=== PATIENT | male | born 1980 | race Two or more races ===

== ENCOUNTER 2017-02-25 14:36 | Emergency (ER) | payer OTHER ==
--- NOTE | 2017-02-25 14:53 | EDM.PDOC ---
ED HPI GENERAL MEDICAL PROBLEM - General Stated Complaint: FLU-LIKE SYMPTOMS Time Seen by Provider: 02/25/17 14:42 Source of Information: Reports: Patient History Limitations: Reports: No Limitations - History of Present Illness INITIAL COMMENTS - FREE TEXT/NARRATIVE: HISTORY AND PHYSICAL: History of present illness: Patient is a 36-year-old male who presents in the [facility] . He states that yesterday he started having a cough and developed head, neck , back pain late last night into today. Initially presented to the [facility] for evaluation, upon further discussion the patient mentioned he has had meningitis in the past and they would like him to be evaluated in the ED. Patient denies any change in vision, chest pain, shortness of breath, abdominal pain, vomiting or diarrhea. Patient does report mild nausea. Reports that the [facility] did an influenza swab on him, which was negative. Denies any recent injury or trauma. Patient was hospitalized 2 years ago with meningitis. He is concerned that he may have menegitis again, due to the neck pain. Review of systems: As per history of present illness and below otherwise all systems reviewed and negative. Past medical history: As per history of present illness and as reviewed below otherwise noncontributory. Surgical history: As per history of present illness and as reviewed below otherwise noncontributory. Social history: No reported history of drug or alcohol abuse. Family history: As per history of present illness and as reviewed below otherwise noncontributory. Physical exam: General: Well-developed and well-nourished 36-year-old male. Alert and oriented. Nontoxic appearing. HEENT: Atraumatic, normocephalic, pupils reactive, negative for conjunctival pallor or scleral icterus, mucous membranes moist, throat clear, neck supple, nontender, trachea midline. TM normal bilaterally. Patient has full range of motion of the cervical spine/neck, does have some discomfort but no nuchal rigidity. Lungs: Clear to auscultation, breath sounds equal bilaterally, chest nontender. Heart: S1S2, regular rate and rhythm, no overt murmurs Abdomen: Soft, nondistended, nontender. Negative for masses or hepatosplenomegaly. Negative for costovertebral tenderness. Pelvis: Stable nontender. Genitourinary: Deferred. Rectal: Deferred. C-Spine/Back: No pinpoint vertebral tenderness. No obvious deformities, crepitus or step-offs. Extremities: Atraumatic, negative for cords or calf pain. Neurovascular unremarkable. Neuro: Awake, alert, oriented. Cranial nerves II through XII unremarkable. Cerebellum unremarkable. Motor and sensory unremarkable throughout. Exam nonfocal. Along with routine labs a lumbar puncture will be done by the radiologist, Dr. Briggs. CBC, CMP, chest x-ray are normal. Waiting for CSF studies to return. Patient received Toradol for body aches and Tylenol for fever management. The CSF studies were within normal limits. Did discuss with patient the treatment of influenza. We'll prescribe Tamiflu and Ultram as he does have severe body aches. We talked about supportive care measures such as hydration and Tylenol/ibuprofen. Work note was given until the patient is fever free for 24 hours. Patient voices understanding and is agreeable to plan of care. He denies any further questions at this time. Diagnostics: CBC, CMP, chest x-ray, CSF study, influenza screen Therapeutics: IV fluid, Zofran, Toradol, Tylenol Impression: Influenza B Plan: 1. Tamiflu 1 tab twice daily 5 days. (First 2 doses have been given to use through the ER). This medication does not treat the flu but will shorten the duration of symptoms. Please continue to provide symptomatic care such as: Tylenol and/or ibuprofen for pain and fever management, encourage plenty of fluids to prevent dehydration, and rest. 2. Tramadol has been prescribed to use for severe body aches. This medication does cause drowsiness so do not take it while driving or needing to be functioning at work. Take 1 tab every 4-6 hours as needed. 3. As we discussed please perform good hand hygiene and contact precaution as this is contagious. 4. Follow-up with your primary caregiver in the next 1-2 days. Return to the ED as needed and as discussed. Definitive disposition and diagnosis as appropriate pending reevaluation and review of above. Duration: Day(s): Location: Reports: Head, Neck, Back Quality: Reports: Ache Associated Symptoms: Reports: Cough, Headaches, Nausea/Vomiting. Denies: Confusion, Chest Pain, cough w sputum, Diaphoresis, Fever/Chills, Loss of Appetite, Malaise, Rash, Seizure, Shortness of Breath, Syncope, Weakness Back Pain Score (Numeric/FACES): 9 - Related Data Allergies Allergy/AdvReac Type Severity Reaction Status Date / Time No Known Drug Allergies Allergy Other Verified 02/25/17 14:50 Home Meds: Home Meds . [No Known Home Meds] 02/25/17 [History] ED ROS GENERAL - Review of Systems Review Of Systems: ROS reveals no pertinent complaints other than HPI. ED EXAM, GENERAL - Physical Exam Exam: See Below (See dictation) Course - Vital Signs Last Recorded V/S: Last Vital Signs Temp 99.0 F 02/25/17 14:51 Pulse 79 02/25/17 14:51 Resp 18 02/25/17 14:51 BP 136/75 02/25/17 14:51 Pulse Ox 98 02/25/17 14:51 - Orders/Labs/Meds Orders: Active Orders 24 hr Category Date Time Status Fluoro GD Lumbar Punct Dx [CR] Stat Exams 02/25/17 15:18 Taken CULTURE CSF + SMEAR [RM] Stat Lab 02/25/17 15:15 Received Sodium Chloride 0.9% [Normal Saline] 1,000 ml Med 02/25/17 16:36 Active IV STAT Medication Orders Sodium Chloride (Normal Saline) 1,000 mls @ 150 mls/hr IV STAT ONE Stop: 02/25/17 23:15 Last Admin: 02/25/17 16:40 Dose: 150 mls/hr Labs: Laboratory Tests 02/25/17 02/25/17 02/25/17 Range/Units 15:15 15:15 15:50 WBC (4.0-11.0) K/uL RBC (4.50-5.90) M/uL Hgb (13.0-17.0) g/dL Hct (38.0-50.0) % MCV (80.0-98.0) fL MCH (27.0-32.0) pg MCHC (31.0-37.0) g/dL RDW Std Deviation (28.0-62.0) fl RDW Coeff of Marilyn (11.0-15.0) % Plt Count (150-400) K/uL MPV (7.40-12.00) fL Neut % (Auto) (48.0-80.0) % Lymph % (Auto) (16.0-40.0) % Evangeline % (Auto) (0.0-15.0) % Eos % (Auto) (0.0-7.0) % Baso % (Auto) (0.0-1.5) % Neut # (Auto) (1.4-5.7) K/uL Lymph # (Auto) (0.6-2.4) K/uL Evangeline # (Auto) (0.0-0.8) K/uL Eos # (Auto) (0.0-0.7) K/uL Baso # (Auto) (0.0-0.1) K/uL Nucleated RBC % /100WBC Nucleated RBCs # K/uL Sodium (136-146) mmol/L Potassium (3.5-5.1) mmol/L Chloride (98-110) mmol/L Carbon Dioxide (21-31) mmol/L BUN (6.0-23.0) mg/dL Creatinine (0.6-1.5) mg/dL Est Cr Clr Drug Dosing mL/min Estimated GFR (MDRD) ml/min Glucose (60-110) mg/dL Calcium (8.8-10.8) mg/dL Total Bilirubin (0.1-1.5) mg/dL AST (5-40) IU/L ALT (8-54) IU/L Alkaline Phosphatase (40-150) Total Protein (6.0-8.0) g/dL Albumin (3.5-5.0) g/dL Globulin (2.0-3.5) g/dL Albumin/Globulin Ratio (1.3-2.8) CSF Appearance CLEAR CSF Color COLORLESS CSF WBC 0.001 (0-0.005) K/uL CSF RBC 0.000 (0.0-0.0) M/uL CSF Mononuclear Cells 100.0 % CSF Polymorphonuclear 0.0 % CSF Glucose 53.0 (50-80) mg/dL CSF Total Protein 28 (15-60) mg/dL 02/25/17 02/25/17 Range/Units 16:21 16:21 WBC 5.72 (4.0-11.0) K/uL RBC 4.63 (4.50-5.90) M/uL Hgb 14.8 (13.0-17.0) g/dL Hct 42.7 (38.0-50.0) % MCV 92.2 (80.0-98.0) fL MCH 32.0 (27.0-32.0) pg MCHC 34.7 (31.0-37.0) g/dL RDW Std Deviation 44.8 (28.0-62.0) fl RDW Coeff of Marilyn 13 (11.0-15.0) % Plt Count 197 (150-400) K/uL MPV 11.30 (7.40-12.00) fL Neut % (Auto) 68.4 (48.0-80.0) % Lymph % (Auto) 18.2 (16.0-40.0) % Evangeline % (Auto) 9.4 (0.0-15.0) % Eos % (Auto) 3.5 (0.0-7.0) % Baso % (Auto) 0.5 (0.0-1.5) % Neut # (Auto) 3.9 (1.4-5.7) K/uL Lymph # (Auto) 1.0 (0.6-2.4) K/uL Evangeline # (Auto) 0.5 (0.0-0.8) K/uL Eos # (Auto) 0.2 (0.0-0.7) K/uL Baso # (Auto) 0.0 (0.0-0.1) K/uL Nucleated RBC % 0.0 /100WBC Nucleated RBCs # 0 K/uL Sodium 139 (136-146) mmol/L Potassium 4.2 (3.5-5.1) mmol/L Chloride 109 (98-110) mmol/L Carbon Dioxide 20 L (21-31) mmol/L BUN 11 (6.0-23.0) mg/dL Creatinine 0.8 (0.6-1.5) mg/dL Est Cr Clr Drug Dosing 130.11 mL/min Estimated GFR (MDRD) > 60.0 ml/min Glucose 79 (60-110) mg/dL Calcium 8.8 (8.8-10.8) mg/dL Total Bilirubin 0.3 (0.1-1.5) mg/dL AST 24 (5-40) IU/L ALT 25 (8-54) IU/L Alkaline Phosphatase 43 (40-150) Total Protein 7.3 (6.0-8.0) g/dL Albumin 4.1 (3.5-5.0) g/dL Globulin 3.2 (2.0-3.5) g/dL Albumin/Globulin Ratio 1.3 (1.3-2.8) CSF Appearance CSF Color CSF WBC (0-0.005) K/uL CSF RBC (0.0-0.0) M/uL CSF Mononuclear Cells % CSF Polymorphonuclear % CSF Glucose (50-80) mg/dL CSF Total Protein (15-60) mg/dL Meds: Medications Generic Name Dose Route Start Last Admin Trade Name Freq PRN Reason Stop Dose Admin Sodium Chloride 1,000 mls @ 150 mls/hr 02/25/17 16:36 02/25/17 16:40 Normal Saline IV 02/25/17 23:15 150 mls/hr STAT ONE Administration Discontinued Medications Generic Name Dose Route Start Last Admin Trade Name Freq PRN Reason Stop Dose Admin Acetaminophen 1,000 mg 02/25/17 16:42 02/25/17 16:54 Tylenol Extra Strength PO 02/25/17 16:43 1,000 mg ONETIME ONE Administration Sodium Chloride 1,000 mls @ 999 mls/hr 02/25/17 14:58 02/25/17 15:27 Normal Saline IV 02/25/17 15:58 999 mls/hr STAT ONE Administration Ketorolac Tromethamine 30 mg 02/25/17 16:30 02/25/17 16:39 Toradol IVPUSH 02/25/17 16:31 30 mg ONETIME ONE Administration Ondansetron HCl 4 mg 02/25/17 14:58 02/25/17 15:27 Zofran IVPUSH 02/25/17 14:59 4 mg ONETIME ONE Administration Oseltamivir Phosphate 75 mg 02/25/17 16:42 02/25/17 16:54 Tamiflu PO 02/25/17 16:43 75 mg ONETIME ONE Administration Oseltamivir Phosphate 75 mg 02/25/17 18:20 Tamiflu PO 02/25/17 18:21 ONETIME ONE Departure - Departure Time of Disposition: 18:26 Disposition: Home, Self-Care 01 Clinical Impression: Influenza B - Discharge Information Referrals: PCP,None [Primary Care Provider] - Additional Instructions: My general discharge The following information is given to patients seen in the emergency department who are being discharged to home. This information is to outline your options for follow-up care. We provide all patients seen in our emergency department with a follow-up referral. The need for follow-up, as well as the timing and circumstances, are variable depending upon the specifics of your emergency department visit. If you don't have a primary care physician on staff, we will provide you with a referral. We always advise you to contact your personal physician following an emergency department visit to inform them of the circumstance of the visit and for follow-up with them and/or the need for any referrals to a consulting specialist. The emergency department will also refer you to a specialist when appropriate. This referral assures that you have the opportunity for follow-up care with a specialist. All of these measure are taken in an effort to provide you with optimal care, which includes your follow-up. Under all circumstances we always encourage you to contact your private physician who remains a resource for coordinating your care. When calling for follow-up care, please make the office aware that this follow-up is from your recent emergency room visit. If for any reason you are refused follow-up, please contact the [facility] Emergency Department at and asked to speak to the emergency department charge nurse. [facility] [address] [place] [address] 1. Tamiflu 1 tab twice daily 5 days. (First 2 doses have been given to use through the ER). This medication does not treat the flu but will shorten the duration of symptoms. Please continue to provide symptomatic care such as: Tylenol and/or ibuprofen for pain and fever management, encourage plenty of fluids to prevent dehydration, and rest. 2. Tramadol has been prescribed to use for severe body aches. This medication does cause drowsiness so do not take it while driving or needing to be functioning at work. Take 1 tab every 4-6 hours as needed. 3. As we discussed please perform good hand hygiene and contact precaution as this is contagious. 4. Follow-up with your primary caregiver in the next 1-2 days. Return to the ED as needed and as discussed. - My Orders Last 24 Hours: My Active Orders 02/25/17 15:15 CULTURE CSF + SMEAR [RM] Stat 02/25/17 16:36 Sodium Chloride 0.9% [Normal Saline] 1,000 ml IV STAT - Assessment/Plan Last 24 Hours: My Active Orders 02/25/17 15:15 CULTURE CSF + SMEAR [RM] Stat 02/25/17 16:36 Sodium Chloride 0.9% [Normal Saline] 1,000 ml IV STAT
[2017-02-25] MEDS ORDERED: Ondansetron 4 MG/2 ML SDV IVPUSH ONE (14:58)
[2017-02-25] MEDS ORDERED: Sodium Chloride 0.9% 1,000 ML IV ONE ×2 (14:58→16:36)
[2017-02-25] MEDS ORDERED: Ketorolac 30 MG/ML SDV IVPUSH ONE (16:30)
[2017-02-25] MEDS ORDERED: Oseltamivir 75 MG Cap PO ONE ×2 (16:42→18:20)
[2017-02-25] MEDS ORDERED: Acetaminophen 500 MG Tab PO ONE (16:42)
[2017-02-25 17:03] LABS: CHLORIDE,CL 109 mmol/L (98-110); SODIUM,NA 139 mmol/L (136-146)
--- NOTE | 2017-02-25 17:35 | CR ---
EXAM DATE: 02/25/17 PATIENT'S AGE: 36 Patient: NILE WERNER Facility: [place], [place] Site . Site : [id number] Study: XRay Chest [id number] 4:25:26 PM Ordering Physician: Shelia Clark Final Report: INDICATIONS: Neck pain. Cough. TECHNIQUE: Chest 2 frontal views. COMPARISON: None FINDINGS: No pneumothorax, pleural effusion or airspace consolidation. Cardiac and mediastinal contours are within normal limits. Upper abdomen and osseous structures show no acute abnormality. IMPRESSION: No evidence of acute cardiopulmonary disease. Dictated by Donavon De León MD @ 02/25/2017 4:29:58 PM Dictated by: Donavon De León MD @ 02/25/2017 16:30:05 (Electronic Signature) Report Signed by Proxy. [facility] CENTERNohelia
--- NOTE | 2017-02-26 09:41 | CR ---
EXAMINATION: Fluoroscopic guided lumbar puncture HISTORY: Neck pain COMPARISON: None TECHNIQUE: The procedure, risks, and benefits were discussed with the patient. Written informed conse nt was obtained. The patient was placed prone on the fluoroscopic table. The overlying area was steri twyla prepped and draped. 1% lidocaine was administered for local anesthesia. Using fluoroscopic marybeth nce a 20-gauge spinal needle was advanced at the L2-L3 level until CSF return was noted. Approximatel y 11 mm of clear CSF was collected. The patient tolerated the procedure well. No immediate complicati ons. IMPRESSION: Successful fluoroscopic guided lumbar puncture.
== END 2017-02-25 18:45 | disposition home or self-care (01) ==
LOC: MW.ED 14:36
DX: J10.1 Influenza due to other identified influenza virus with other respiratory manifestations (principal)
CPT/HCPCS: 36415; 62270; 71045; 80053; 82945; 84157; 85025; 87070; 87205; 87804; 89050; 96361; 96374; 96375; 99283; A9270; J1885; J2405; J7040; 99284